=== PATIENT | female | born 1995 ===

== ENCOUNTER 2024-03-01 10:42 | Emergency (ER) | payer OTHER ==
[~2024-03-01] VITALS: Ht 170.2 cm; Wt 80.0 kg
[2024-03-01] MEDS ORDERED: Cyclobenzaprine 10 MG TAB PO ONE (13:00)
[2024-03-01] MEDS ORDERED: NS 1,000 ML IV ONE (13:00)
[2024-03-01 13:46] LABS: BASO # 0.1 K/mm3 (0.0-0.2); BASO % 0.9 % (0.0-2.0); EOS # 0.3 K/mm3 (0.0-0.7); EOS % 4.1 % (0.0-4.0); GRAN # 4.5 K/mm3 (1.4-6.5); GRAN % 56.7 % (42.2-75.2); HEMATOCRIT 42.5 % (37.0-47.0); HEMOGLOBIN 13.9 g/dl (12.5-16.0); LYMPH # 2.4 K/mm3 (1.2-3.4); LYMPH % 30.2 % (20.0-51.0); MEAN CELL VOLUME 88 fl (80.0-100.0); MEAN CORPUSCULAR HEMOGLOBIN 29 pg (27-31); MEAN CORPUSCULAR HGB CONC 33 g/dl (33.0-37.0); MEAN PLATELET VOLUME 11.9 fl (7.4-10.4); MONO # 0.6 K/mm3 (0.1-0.6); PLATELET COUNT 214 K/mm3 (130-400); RED BLOOD COUNT 4.81 M/mm3 (4.10-5.30); REDCELL DISTRIBUTION WIDTH-CV 12.9 % (11.5-14.5)
[2024-03-01 13:54] VITALS: TEMP 97.6
[2024-03-01 14:04] LABS: ALBUMIN 4.4 g/dL (3.5-5.0); BILIRUBIN,TOTAL 1.1 mg/dL (0.2-1.2); C-REACTIVE PROTEIN 0.49 mg/dL (0.00-0.50); CALCIUM 9.4 mg/dL (8.4-10.2); CREATININE, serum 0.84 mg/dL (0.57-1.11); POTASSIUM 3.7 mEq/L (3.5-4.5); TOTAL PROTEIN 7.6 g/dl (6.2-8.1)
[2024-03-01] MEDS ORDERED: FLEXERIL 1010 MG/TAB PO (14:19)
[2024-03-01 14:43] VITALS: BP 121/69; PULSE 62
== END 2024-03-01 14:43 | disposition home or self-care (01) ==
LOC: COL.ER 10:42
PROVIDERS: Nurse Practitioner
DX: M62.838 Other muscle spasm (principal)
CPT/HCPCS: J7030